=== PATIENT | female | born 1990 | race African-American/Black ===

== ENCOUNTER 2022-03-08 13:11 | Emergency (ER) | payer SELFPAY ==
[~2022-03-08] VITALS: Ht 162.6 cm; Wt 68.0 kg
--- NOTE | 2022-03-08 15:00 | NUR ---
Pt stated she has to pick her kid from school and walked out of the ER.
== END 2022-03-08 15:06 | disposition left against medical advice (07) ==
LOC: ER 13:11
DX: T19.2XXA Foreign body in vulva and vagina, initial encounter (principal); X58.XXXA Exposure to other specified factors, initial encounter; Y92.89 Other specified places as the place of occurrence of the external cause
CPT/HCPCS: A4663

== ENCOUNTER 2022-06-21 20:42 | Emergency (ER) | payer OTHER ==
[~2022-06-21] VITALS: Ht 165.1 cm; Wt 72.6 kg
--- NOTE | 2022-06-21 22:20 | NUR ---
After being triaged, patient was placed back in the waiting room due to no beds available in the ER.
--- NOTE | 2022-06-21 23:44 | NUR ---
Patient placed in room 3a at this time.
[2022-06-22] MEDS ORDERED: ONDANSETRON ODT 4 MG TAB.RAPDIS SL ONE (00:15)
[2022-06-22] MEDS ORDERED: OXYCODONE/APAP 5-325 MG TABLET PO ONE (00:15)
[2022-06-22] MEDS ORDERED: ONDA4TAB5 PO (00:31)
[2022-06-22] MEDS ORDERED: OXYC-128 PO (00:31)
[2022-06-22] MEDS ORDERED: OXYCODONE/APAP 5-325 MG TABLET ONE (00:31)
[2022-06-22] MEDS ORDERED: ONDANSETRON ODT 4 MG TAB.RAPDIS ONE (00:31)
--- NOTE | 2022-06-22 00:52 | NUR ---
Patient discharged to home in stable condition with family taking patient home. Written and verbal after care instructions given. Patient verbalizes understanding of instructions. Stressed follow up or return to ER for worsening s/s.
[2022-06-22 00:54] VITALS: BP 145/60
== END 2022-06-22 00:54 | disposition home or self-care (01) ==
LOC: ER 20:42
DX: S20.211A Contusion of right front wall of thorax, initial encounter (principal); R07.89 Other chest pain; Z79.899 Other long term (current) drug therapy; Y04.2XXA Assault by strike against or bumped into by another person, initial encounter; Y93.89 Activity, other specified; Y92.89 Other specified places as the place of occurrence of the external cause; Y99.8 Other external cause status
CPT/HCPCS: 71045; A4663; Q0162